=== PATIENT | male | born 1965 | race Caucasian/White ===

== ENCOUNTER 2018-02-16 03:19 | Emergency (ER) | payer OTHER ==
[~2018-02-16] VITALS: Ht 170.2 cm; Wt 75.7 kg
[2018-02-16] MEDS ORDERED: LISINOPRIL10 MG (03:52)
[2018-02-16] MEDS ORDERED: LIPITOR20 MG (03:52)
== END 2018-02-16 06:23 | disposition home or self-care (01) ==
LOC: ER 03:19
DX: I16.0 Hypertensive urgency (principal); I10 Essential (primary) hypertension